=== PATIENT | male | born 1965 | race Caucasian/White ===

== ENCOUNTER 2022-03-28 05:05 | Inpatient (IN) | payer MEDICAID ==
[2022-03-28] MEDS ORDERED: Scopolamine 1.5 MG Transdermal Patch TOP ONE (06:00)
[2022-03-28] MEDS ORDERED: Celecoxib 200 MG Cap PO ONE (06:00)
[2022-03-28] MEDS ORDERED: Acetaminophen 500 MG Tab PO ONE (06:00)
[2022-03-28] MEDS ORDERED: Dextrose 5%-Lactated Ringers 1,000 ML IV SCH ×2 (06:00→11:45)
[2022-03-28 06:27] LABS: ESTIMATED GFR 100 mL/min (>60)
[2022-03-28] MEDS ORDERED: cefOXitin 2 GM Vial ONE (06:55)
[2022-03-28] MEDS ORDERED: fentaNYL 250 MCG/5 ML SDV ONE ×2 (07:01→08:14)
[2022-03-28] MEDS ORDERED: Neostigmine Methylsulfate 1 MG/ML 5 ML Syringe ONE (07:02)
[2022-03-28] MEDS ORDERED: Rocuronium 50 MG/5 ML Vial ONE (07:02)
[2022-03-28] MEDS ORDERED: Ondansetron 4 MG/2 ML SDV ONE (07:02)
[2022-03-28] MEDS ORDERED: Propofol 200 MG/20 ML SDV ONE (07:02)
[2022-03-28] MEDS ORDERED: Dexamethasone 4 MG/ML SDV ONE (07:02)
[2022-03-28] MEDS ORDERED: Glycopyrrolate 0.2 MG/ML 5 ML MDV ONE (07:02)
[2022-03-28] MEDS ORDERED: Succinylcholine 200 MG/10 ML MDV ONE (07:02)
[2022-03-28] MEDS ORDERED: Lactated Ringers 1,000 ML ONE (07:05)
[2022-03-28] MEDS ORDERED: cefOXitin 2 GM in Sodium Chloride 0.9% 50 ML IV ONE (07:15)
[2022-03-28] MEDS ORDERED: Ketamine 19 MG in Sodium Chloride 0.9% 19.81 ML IV SCH (07:30)
[2022-03-28] MEDS ORDERED: Ketamine 500 MG/5 ML MDV IV SCH (07:30)
[2022-03-28] MEDS ORDERED: Ketoconazole 2% Crm 30 GM Tube ONE (07:49)
[2022-03-28] MEDS ORDERED: Glucagon,Human Recombinant 1 MG Vial ONE (08:41)
[2022-03-28 09:48] LABS: HEMOGLOBIN A1C 5.9 % (4.5-6.2)
[2022-03-28] MEDS ORDERED: fentaNYL 100 MCG/2 ML SDV ONE (09:55)
[2022-03-28] MEDS ORDERED: Glucagon,Human Recombinant 1 MG Vial IM PRN ×2 (10:26→12:00)
[2022-03-28] MEDS ORDERED: 50% Dextrose in Water 50 ML Syringe IVPUSH PRN ×2 (10:26→12:00)
[2022-03-28] MEDS ORDERED: hydrOXYzine HCL 100 MG/2 ML SDV IM ONE (10:30)
[2022-03-28] MEDS ORDERED: Insulin Lispro 100 Unit/ML 3 ML KwikPen SUBCUT ONE (11:00)
[2022-03-28] MEDS ORDERED: Metoclopramide 10 MG/2 ML SDV IVPUSH PRN (12:00)
[2022-03-28] MEDS ORDERED: HYDROmorphone 1 MG/ML Syringe IV PRN (12:00)
[2022-03-28] MEDS ORDERED: hydrOXYzine HCL 100 MG/2 ML SDV IM PRN (12:00)
[2022-03-28] MEDS ORDERED: Acetaminophen 500 MG Tab PO PRN (12:00)
[2022-03-28] MEDS ORDERED: diphenhydrAMINE 50 MG/ML SDV IVPUSH PRN (12:00)
[2022-03-28] MEDS ORDERED: Pantoprazole 40 MG Vial IVPUSH SCH (12:00)
[2022-03-28] MEDS ORDERED: Labetalol 20 MG/4 ML Syringe IVPUSH PRN (12:00)
[2022-03-28] MEDS ORDERED: HYDROmorphone 0.5 MG/0.5 ML Syringe IVPUSH PRN (12:00)
[2022-03-28] MEDS ORDERED: Ondansetron 4 MG/2 ML SDV IVPUSH PRN (12:00)
[2022-03-28] MEDS: Furosemide 20 MG Tab PO SCH (14:12)
[2022-03-28] MEDS: Acetaminophen 500 MG Tab PO SCH ×2 (14:12→22:20)
[2022-03-28] MEDS: cefOXitin 2 GM in Sodium Chloride 0.9% 50 ML IV SCH ×2 (14:12→19:57)
[2022-03-28] MEDS: Cyclobenzaprine 10 MG Tab PO PRN (14:19)
[2022-03-28] MEDS: MVI, Adult with Vitamin K 10 ML, Thiamine 200 MG, Zinc/Copper/Manganese/Selenium 1 ML i... IV SCH ×4 (15:44)
[2022-03-28] MEDS: Heparin Sodium 5,000 Units/ML Vial SUBCUT SCH (15:45)
[2022-03-28] MEDS: oxyCODONE 5 MG Tab PO PRN ×2 (15:48→22:20)
[2022-03-28] MEDS: Insulin Lispro 100 Unit/ML 3 ML KwikPen SUBCUT SCH ×2 (17:12→21:59)
[2022-03-28] MEDS: traMADol 50 MG Tab PO PRN (19:56)
[2022-03-28] MEDS: Metoprolol Tartrate 25 MG Tab PO SCH (20:00)
[2022-03-28] MEDS: Lactated Ringers 1,000 ML IV SCH (22:07)
[2022-03-29] MEDS: Heparin Sodium 5,000 Units/ML Vial SUBCUT SCH ×3 (00:01→16:13)
[2022-03-29] MEDS: cefOXitin 2 GM in Sodium Chloride 0.9% 50 ML IV SCH ×4 (01:13→19:38)
[2022-03-29] MEDS ORDERED: Iopamidol 612 MG/ML 50 ML SDV PO STA (02:48)
[2022-03-29] MEDS: traMADol 50 MG Tab PO PRN ×3 (03:44→21:44)
[2022-03-29] MEDS: Insulin Lispro 100 Unit/ML 3 ML KwikPen SUBCUT SCH ×4 (04:47→21:23)
[2022-03-29 05:05] LABS: ESTIMATED GFR 103 mL/min (>60)
[2022-03-29] MEDS: Lactated Ringers 1,000 ML IV SCH ×2 (05:05→13:44)
[2022-03-29] MEDS: Acetaminophen 500 MG Tab PO SCH ×3 (05:08→21:44)
[2022-03-29] MEDS: oxyCODONE 5 MG Tab PO PRN (06:22)
[2022-03-29] MEDS ORDERED: Ondansetron 4 MG Tab.DIS PO PRN (07:17)
[2022-03-29] MEDS ORDERED: hydrOXYzine HCl 25 MG Tab PO PRN (07:18)
[2022-03-29] MEDS: Furosemide 20 MG Tab PO SCH ×2 (08:56→13:39)
[2022-03-29] MEDS: Celecoxib 200 MG Cap PO SCH ×2 (09:08→20:58)
[2022-03-29] MEDS: Losartan 50 MG Tab PO SCH (09:09)
[2022-03-29] MEDS: atorvaSTATin 20 MG Tab PO SCH (09:10)
[2022-03-29] MEDS: Metoprolol Tartrate 25 MG Tab PO SCH ×2 (09:11→20:58)
[2022-03-29] MEDS: SCOPOLAMINE PATCH CHECK TOP SCH (09:12)
[2022-03-29] MEDS: Ketoconazole 2% Crm 30 GM Tube TOP SCH (09:13)
[2022-03-29] MEDS: amLODIPine 5 MG Tab PO SCH (09:14)
[2022-03-29] MEDS: Pantoprazole 40 MG Tab.CR PO SCH (09:15)
[2022-03-29] MEDS: MVI, Adult with Vitamin K 10 ML, Thiamine 200 MG, Zinc/Copper/Manganese/Selenium 1 ML i... IV SCH ×4 (16:13)
[2022-03-29] MEDS: Cyclobenzaprine 10 MG Tab PO PRN (19:51)
[2022-03-30] MEDS: Heparin Sodium 5,000 Units/ML Vial SUBCUT SCH ×2 (00:43→07:25)
[2022-03-30] MEDS: Lactated Ringers 1,000 ML IV SCH (02:57)
[2022-03-30] MEDS: Insulin Lispro 100 Unit/ML 3 ML KwikPen SUBCUT SCH (04:08)
[2022-03-30] MEDS: traMADol 50 MG Tab PO PRN (05:09)
[2022-03-30] MEDS: Acetaminophen 500 MG Tab PO SCH (05:09)
[2022-03-30] MEDS ORDERED: Magnesium Hydroxide 400 MG/5 ML Susp 30 ML Cup PO PRN (07:15)
[2022-03-30] MEDS: Pantoprazole 40 MG Tab.CR PO SCH (07:25)
[2022-03-30] MEDS: Furosemide 20 MG Tab PO SCH (07:25)
[2022-03-30] MEDS: amLODIPine 5 MG Tab PO SCH (08:58)
[2022-03-30] MEDS: Celecoxib 200 MG Cap PO SCH (08:58)
[2022-03-30] MEDS: Ketoconazole 2% Crm 30 GM Tube TOP SCH (08:59)
[2022-03-30] MEDS: Losartan 50 MG Tab PO SCH (08:59)
[2022-03-30] MEDS: SCOPOLAMINE PATCH CHECK TOP SCH (08:59)
[2022-03-30] MEDS: Metoprolol Tartrate 25 MG Tab PO SCH (08:59)
[2022-03-30] MEDS: atorvaSTATin 20 MG Tab PO SCH (08:59)
[2022-03-30] MEDS ORDERED: Cyanocobalamin (Vitamin B12) 1,000 MCG/ML SDV IM ONE (09:00)
== END 2022-03-30 10:15 | disposition home or self-care (01) | DRG 620 ==
LOC: JP.SDSSCHI 05:05 → JP.SDS 05:05 → EDSTATUS 07:15 → JP.MS 10:20
PROVIDERS: ADMIT Surgery; ATTEND Surgery
PROC: 0D194ZB Bypass Duodenum to Ileum, Percutaneous Endoscopic Approach (ICD-10-PCS; principal; 2022-03-28)
PROC: 0FB24ZX Excision of Left Lobe Liver, Percutaneous Endoscopic Approach, Diagnostic (ICD-10-PCS; 2022-03-28)
PROC: 0BQT4ZZ Repair Diaphragm, Percutaneous Endoscopic Approach (ICD-10-PCS; 2022-03-28)
DX: E66.01 Morbid (severe) obesity due to excess calories (principal); I50.32 Chronic diastolic (congestive) heart failure; Z68.43 Body mass index [BMI] 50.0-59.9, adult; G47.33 Obstructive sleep apnea (adult) (pediatric); I11.0 Hypertensive heart disease with heart failure; F41.1 Generalized anxiety disorder; F41.0 Panic disorder [episodic paroxysmal anxiety]; M54.9 Dorsalgia, unspecified; G89.29 Other chronic pain; E78.5 Hyperlipidemia, unspecified; E11.9 Type 2 diabetes mellitus without complications; R16.0 Hepatomegaly, not elsewhere classified; K44.9 Diaphragmatic hernia without obstruction or gangrene; Z86.16 Personal history of COVID-19; Z79.82 Long term (current) use of aspirin; Z79.899 Other long term (current) drug therapy; Z79.84 Long term (current) use of oral hypoglycemic drugs; Z87.891 Personal history of nicotine dependence
CPT/HCPCS: 36415; 74240; 74240-26; 80053; 82947; 83036; 83735; 83880; 84100; 85025; 86850; 86900; 86901; 88304; 88307; 88313; 93005; A9270-GY; C9113; J0171; J0330; J0694; J1100; J1170; J1610; J1644; J1815; J2405; J2704; J2710; J2795; J3010; J3410; J3411; J3420; J3490; J7120; J7121; Q9967